=== PATIENT | male | born 1975 | race Caucasian/White ===

== ENCOUNTER 2016-08-29 07:24 | Observation (INO) | payer OTHER ==
[~2016-08-29] VITALS: Ht 177.8 cm; Wt 65.5 kg
[~2016-08-29 07:24] MED LIST: 0.9% SODIUM CHLORIDE 10 ML VIAL IVP ONE; BUPIVACAINE HCL/PF 0.5% 30 ML VIAL ONE; DEXAMETHASONE SOD PHOS 4 MG/ML VIAL IVP ONE; FentaNYL CITRATE-PF 250 MCG/5 ML VIAL IVP ONE; LIDOCAINE HCL/PF 2% 5 ML VIAL IM ONE; MIDAZOLAM HCL 2 MG/2 ML VIAL IVP ONE; MORPHINE SULFATE/PF 0.5 MG/ML 10 ML AMP IVP ONE; ONDANSETRON HCL 4 MG/2 ML VIAL IVP ONE; PROPOFOL 1% 20 ML VIAL IVP ONE; RINGERS SOLUTION,LACTATED 1,000 ML IV ONE; SUCCINYLCHOLINE CHLORIDE 20 MG/ML 10 ML VIAL IVP ONE
[2016-08-29] MEDS ORDERED: VANCOMYCIN HCL 1 GM/VIAL ONE (07:28)
[2016-08-29] MEDS ORDERED: RINGERS SOLUTION,LACTATED 1,000 ML IV ONE ×2 (07:40→10:06)
[2016-08-29 07:59] LABS: BASOPHILS % (AUTO) 0.7 % (0.0-2.0); HEMATOCRIT 42.9 % (41-53); HEMOGLOBIN 13.7 g/dL (13.5-17.5); LYMPHOCYTES # (AUTO) 3.7 K/uL (1.0-4.8); LYMPHOCYTES % (AUTO) 41.1 % (22.0-44.0); MEAN CORPUSCULAR HEMOGLOBIN 30.2 pg (26.0-34.0); MEAN CORPUSCULAR VOLUME 94 fL (80-100); MONOCYTES # (AUTO) 0.7 K/uL (0.1-1.0); MONOCYTES % (AUTO) 8.3 % (2.0-9.0); NEUTROPHILS # (AUTO) 4.3 K/uL (1.8-7.7); NEUTROPHILS % (AUTO) 47.9 % (40.0-70.0); PLATELET COUNT (AUTO) 296 K/uL (150-450); RED BLOOD CELL COUNT(AUTO) 4.54 MIL/uL (4.50-5.90); RED CELL DISTRIBUTION WIDTH 13.6 % (11.5-14.5)
[2016-08-29 08:10] LABS: INR 0.9 (0.9-1.1)
[2016-08-29 08:16] LABS: ANION GAP 9 mmol/L (8-16); CALCIUM, TOTAL 8.7 mg/dL (8.8-10.5); CARBON DIOXIDE 29 mmol/L (22-29); CHLORIDE 104 mmol/L (98-107); CREATININE 1.09 mg/dL (0.60-1.30); GLOMERULAR FILTR. RATE CALC > 60 mL/min (>60); POTASSIUM 4.1 mmol/L (3.5-5.1); SODIUM SERUM 142 mmol/L (136-145); UREA NITROGEN, BLOOD 26 mg/dL (7-18)
[2016-08-29 08:21] LABS: ALANINE AMINOTRANSFERASE 32 U/L (12-78); ALBUMIN 3.8 g/dL (3.4-5.0); ASPARTATE AMINOTRANSFERASE 8 U/L (15-37); BILIRUBIN,TOTAL 0.2 mg/dL (0.1-1.0); TOTAL PROTEIN, SERUM 7.1 g/dL (6.4-8.2)
[2016-08-29] MEDS ORDERED: LORA2TAB2 PO (08:25)
[2016-08-29] MEDS ORDERED: OXYC10 PO (08:25)
[2016-08-29] MEDS ORDERED: ACETAMINOPHEN 1000 MG/ISO-OSM 100 ML IV ONE (08:46)
[2016-08-29] MEDS ORDERED: ZOLPIDEM TARTRATE 5 MG TABLET PO PRN (09:45)
[2016-08-29] MEDS ORDERED: MEPERIDINE-PF 25 MG/ML SYRINGE IVP PRN (09:45)
[2016-08-29] MEDS ORDERED: CYCLOBENZAPRINE HCL 10 MG TABLET PO PRN (09:45)
[2016-08-29] MEDS ORDERED: ONDANSETRON HCL 4 MG/2 ML VIAL IVP PRN (09:45)
[2016-08-29] MEDS ORDERED: PROMETHAZINE HCL 25 MG/ML VIAL IM PRN (09:45)
[2016-08-29] MEDS ORDERED: FentaNYL CITRATE-PF 100 MCG/2 ML VIAL IVP PRN (09:45)
[2016-08-29] MEDS ORDERED: HYDROmorphone 2 MG/ML SYRINGE IVP PRN (09:45)
[2016-08-29] MEDS ORDERED: OxyCODONE HCL 5 MG IR TABLET PO PRN (09:45)
[2016-08-29] MEDS ORDERED: HYDROmorphone 2 MG/ML SYRINGE ONE (10:44)
[2016-08-29] MEDS ORDERED: BENZOCAINE/MENTHOL LOZENGE [8 LOZENGES/PACKET] PO PRN (10:45)
[2016-08-29] MEDS ORDERED: OXYC10IR PO (10:45)
[2016-08-29] MEDS ORDERED: DiphenhydrAMINE HCL 50 MG/ML VIAL IVP PRN (10:45)
[2016-08-29] MEDS ORDERED: ZOLPIDEM TARTRATE 10 MG TABLET PO PRN (10:45)
[2016-08-29] MEDS ORDERED: DEXAMETHASONE SOD PHOS 4 MG/ML VIAL IVP PRN (10:45)
[2016-08-29 11:32] VITALS: BP 119/77
[2016-08-29] MEDS: HYDROmorphone 2 MG/ML SYRINGE IVP PRN ×2 (11:47→16:22)
[2016-08-29] MEDS: ACETAMINOPHEN 1000 MG/ISO-OSM 100 ML IV SCH ×2 (14:48→21:39)
[2016-08-29 16:30] VITALS: BP 131/65
[2016-08-29] MEDS: LORazepam 2 MG TABLET PO PRN (18:41)
[2016-08-29] MEDS: OxyCODONE HCL 10 MG IR TABLET PO PRN ×2 (18:42→22:32)
[2016-08-29] MEDS: OXYGEN THERAPY IH SCH (20:00)
[2016-08-29 20:02] VITALS: BP 123/78
[2016-08-29 23:45] VITALS: BP 137/84
[2016-08-30] MEDS: HYDROmorphone 2 MG/ML SYRINGE IVP PRN (01:36)
[2016-08-30] MEDS: ACETAMINOPHEN 1000 MG/ISO-OSM 100 ML IV SCH (03:49)
[2016-08-30] MEDS: OxyCODONE HCL 10 MG IR TABLET PO PRN ×3 (03:50→11:53)
[2016-08-30 07:50] VITALS: BP 128/78
[2016-08-30] MEDS: OXYGEN THERAPY IH SCH (08:00)
[2016-08-30] MEDS: LORazepam 2 MG TABLET PO PRN (10:17)
[2016-08-30 11:47] VITALS: BP 123/72
== END 2016-08-30 13:43 | disposition home or self-care (01) ==
LOC: 4E 07:24
PROVIDERS: ADMIT Orthopaedic Surgery Orthopaedic Surgery of the Spine; ATTEND Orthopaedic Surgery Orthopaedic Surgery of the Spine
DX: M51.26 Other intervertebral disc displacement, lumbar region (principal); M79.604 Pain in right leg
CPT/HCPCS: 36415; 63056; 80053; 85025; 85610; 85730; 87081; 96374; 96375; 96376 ×2; 97161; 97165; 97530; G0238; G0378 ×2; J0131 ×2; J0330; J0690; J1100; J1170 ×2; J2250; J2274; J2405; J2704; J3010; J3370; J3490 ×2; J7120; X7700; Z7610